=== PATIENT | female | born 1940 ===

== ENCOUNTER 2021-08-01 16:17 | Inpatient (IN) | payer MEDICARE, OTHER ==
[~2021-08-01] VITALS: Ht 162.6 cm; Wt 50.2 kg
[2021-08-01 18:13] LABS: Basophils # (auto) 0 10 ^3/uL (0-0.2); Basophils % (auto) 0.8 % (0.0-2.0); Eosinophils # (auto) 0 10 ^3/uL (0-0.8); Eosinophils % (auto) 0.5 % (0.0-7.0); Hematocrit 39.7 % (36.0-46.0); Hemoglobin 13.3 g/dL (12.2-16.2); Lymphocytes # (auto) 0.8 10 ^3/uL (0.4-5.4); Lymphocytes % (auto) 13.8 % (10.0-50.0); Mean Corpuscular Hemoglobin 31.6 pg (28.0-32.0); Mean Corpuscular Hgb Conc. 33.4 g/dL (32.0-36.0); Mean Corpuscular Volume 94.5 fL (80.0-100.0); Monocytes # (auto) 0.5 10 ^3/uL (0-1.3); Monocytes % (auto) 8.7 % (0.0-12.0); Neutrophils # (auto) 4.6 10 ^3/uL (1.6-8.6); Neutrophils % (auto) 76.2 % (37.0-80.0); Nucleated Red Blood Cells % 0.1 %; Red Cell Distribution Width 15.2 % (11.8-14.3)
[2021-08-01 18:24] LABS: Albumin 2.7 g/dL (3.4-5.0); Calcium 11.5 mg/dL (8.5-10.1); Magnesium 2.5 mg/dL (1.6-2.6)
[2021-08-01 18:29] LABS: BUN/Creatinine Ratio 19.3; Bilirubin, Total 0.7 mg/dL (0.2-1.0); Total Protein 6.4 g/dL (6.4-8.2)
[2021-08-01 18:40] LABS: Potassium 2.6 mmol/L (3.5-5.1)
[2021-08-01 18:41] LABS: INR 0.99 (0.9-1.15)
[2021-08-01] MEDS ORDERED: POTASSIUM CHL 20MEQ/100ML 100 ML IV STA (20:27)
[2021-08-01] MEDS ORDERED: ASPirin 325 MG TAB PO ONE (20:30)
[2021-08-01] MEDS ORDERED: POTASSIUM EFFERVESENT TAB 25 MEQ PO ONE (20:30)
[2021-08-01] MEDS ORDERED: IOHEXOL 300 MG/ML 100ML BOTTLE IJ ONE (21:57)
[2021-08-01] MEDS ORDERED: ACETAMINOPHEN 325 MG TAB PO PRN (22:00)
[2021-08-01] MEDS ORDERED: ONDANSETRON HCL 4 MG/2 ML VIAL IV PRN (22:00)
[2021-08-01] MEDS ORDERED: MORPHINE SULFATE INJECTION 2 MG/ML SYRG IV PRN (22:00)
[2021-08-01] MEDS ORDERED: NITROGLYCERIN 0.4 MG SL TAB SL PRN (22:00)
[2021-08-01] MEDS ORDERED: TEMAZEPAM 15 MG CAP PO PRN (22:00)
[2021-08-02] MEDS ORDERED: POTASSIUM CHL 20MEQ/100ML 100 ML IV ONE (00:56)
[2021-08-02] MEDS: RANOLAZINE ER 500 MG TAB PO SCH ×3 (01:20→22:00)
[2021-08-02] MEDS: ATORVASTATIN 20 MG TAB PO SCH ×2 (01:20→22:00)
[2021-08-02] MEDS: DONEPEZIL HYDROCHLORIDE 5 MG TAB PO SCH ×2 (01:20→22:00)
[2021-08-02] MEDS ORDERED: FLEET ENEMA(ADULT) 135 ML PR ONE (06:30)
[2021-08-02] MEDS: LEVOTHYROXINE SODIUM 25 MCG TAB PO SCH (07:00)
[2021-08-02 08:03] LABS: Basophils # (auto) 0 10 ^3/uL (0-0.2); Basophils % (auto) 0.3 % (0.0-2.0); Eosinophils # (auto) 0 10 ^3/uL (0-0.8); Eosinophils % (auto) 0.2 % (0.0-7.0); Hematocrit 38.7 % (36.0-46.0); Hemoglobin 13.3 g/dL (12.2-16.2); Lymphocytes # (auto) 0.8 10 ^3/uL (0.4-5.4); Lymphocytes % (auto) 8.8 % (10.0-50.0); Mean Corpuscular Hemoglobin 32.3 pg (28.0-32.0); Mean Corpuscular Hgb Conc. 34.4 g/dL (32.0-36.0); Mean Corpuscular Volume 93.8 fL (80.0-100.0); Monocytes # (auto) 0.7 10 ^3/uL (0-1.3); Monocytes % (auto) 7.5 % (0.0-12.0); Neutrophils # (auto) 7.5 10 ^3/uL (1.6-8.6); Neutrophils % (auto) 83.2 % (37.0-80.0); Red Blood Cells 4.12 10^6/uL (4.0-5.20); Red Cell Distribution Width 15.2 % (11.8-14.3)
[2021-08-02 08:16] LABS: Alanine Aminotransferase 18 U/L (13-56); Albumin 2.6 g/dL (3.4-5.0); Anion Gap 9 (5-15); Aspartate Aminotransferase 34 U/L (15-37); BUN/Creatinine Ratio 23.5; Blood Urea Nitrogen 16 mg/dL (7-18); Calcium 11.6 mg/dL (8.5-10.1); Carbon Dioxide 29 mmol/L (21-32); Chloride 98 mmol/L (98-107); GFR African American 106 mL/min; GFR Non-African American 88 mL/min; Glucose 78 mg/dL (74-106); Sodium 136 mmol/L (136-145)
[2021-08-02 08:19] LABS: Alkaline Phosphatase 67 U/L (45-117); Bilirubin, Total 0.6 mg/dL (0.2-1.0); Total Protein 6.1 g/dL (6.4-8.2)
[2021-08-02] MEDS: DOCUSATE SOD 100 MG CAP PO SCH ×2 (08:22→22:00)
[2021-08-02] MEDS: PANTOPRAZOLE 40 MG TAB PO SCH (08:22)
[2021-08-02] MEDS ORDERED: ENOXAPARIN SOD 40 MG/0.4 ML SYRINGE SC SCH (10:00)
[2021-08-02] MEDS ORDERED: ASPirin 81 mg TAB PO SCH (10:00)
[2021-08-02 16:57] VITALS: BP 148/76
[2021-08-02] MEDS: D5W/SOD CHLO 0.9% 1,000 ML IV SCH (17:00)
[2021-08-02] MEDS: RIVAROXABAN 15 MG TAB PO SCH (18:00)
[2021-08-02] MEDS ORDERED: hydrALAZINE HCL 20 MG/ML VL IV PRN (23:30)
[2021-08-03 00:24] VITALS: BP 152/73
[2021-08-03] MEDS: D5W/SOD CHLO 0.9% 1,000 ML IV SCH ×3 (03:27→14:30)
[2021-08-03 04:55] VITALS: BP 156/75
[2021-08-03 04:58] LABS: Urine Bacteria NONE SEEN /hpf (None Seen); Urine Blood 3+ /uL (Negative); Urine Specific Gravity 1.048 (1.001-1.035); Urine WBC 119 /hpf (0 - 5); Urine WBC Clumps PRESENT /hpf (None Seen)
[2021-08-03] MEDS: LEVOTHYROXINE SODIUM 25 MCG TAB PO SCH (06:32)
[2021-08-03 09:00] VITALS: BP 159/78
[2021-08-03] MEDS: PANTOPRAZOLE 40 MG TAB PO SCH (09:21)
[2021-08-03] MEDS: DOCUSATE SOD 100 MG CAP PO SCH ×2 (09:21→22:15)
[2021-08-03] MEDS: RANOLAZINE ER 500 MG TAB PO SCH ×2 (09:21→22:15)
[2021-08-03] MEDS: cefTRIAXone 1GM/50ML D5W 50 ML IV SCH (10:36)
[2021-08-03 13:00] VITALS: BP 157/76
[2021-08-03 17:00] VITALS: BP 154/62
[2021-08-03] MEDS: RIVAROXABAN 15 MG TAB PO SCH (17:13)
[2021-08-03 22:00] VITALS: BP 158/76
[2021-08-03] MEDS: DONEPEZIL HYDROCHLORIDE 5 MG TAB PO SCH (22:14)
[2021-08-03] MEDS: ATORVASTATIN 20 MG TAB PO SCH (22:15)
[2021-08-04] MEDS: D5W/SOD CHLO 0.9% 1,000 ML IV SCH (04:48)
[2021-08-04 05:00] VITALS: BP 149/70
[2021-08-04] MEDS: LEVOTHYROXINE SODIUM 25 MCG TAB PO SCH (06:19)
[2021-08-04 09:00] VITALS: BP 150/76
[2021-08-04] MEDS: RANOLAZINE ER 500 MG TAB PO SCH ×2 (09:35→21:33)
[2021-08-04] MEDS: PANTOPRAZOLE 40 MG TAB PO SCH (09:35)
[2021-08-04] MEDS: DOCUSATE SOD 100 MG CAP PO SCH (09:35)
[2021-08-04] MEDS: cefTRIAXone 1GM/50ML D5W 50 ML IV SCH (09:35)
[2021-08-04 13:00] VITALS: BP 144/74
[2021-08-04 16:40] VITALS: BP 154/83
[2021-08-04] MEDS: RIVAROXABAN 15 MG TAB PO SCH (18:13)
[2021-08-04] MEDS: SENNA 8.6 MG TAB PO SCH (21:32)
[2021-08-04] MEDS: DONEPEZIL HYDROCHLORIDE 5 MG TAB PO SCH (21:33)
[2021-08-04] MEDS: ATORVASTATIN 20 MG TAB PO SCH (21:33)
[2021-08-04 22:00] VITALS: BP 150/68
[2021-08-04] MEDS: FOLIC ACID 1 MG in D5W 5% 50 ML INJ SCH (22:13)
[2021-08-05] MEDS: D5W/SOD CHLO 0.9% 1,000 ML IV SCH ×2 (00:13→13:21)
[2021-08-05 05:00] VITALS: BP 123/85
[2021-08-05] MEDS: LEVOTHYROXINE SODIUM 100 MCG TAB PO SCH (06:21)
[2021-08-05 09:00] VITALS: BP 148/85
[2021-08-05] MEDS: cefTRIAXone 1GM/50ML D5W 50 ML IV SCH (09:30)
[2021-08-05] MEDS: FOLIC ACID 1 MG in D5W 5% 50 ML INJ SCH (11:19)
[2021-08-05] MEDS: PANTOPRAZOLE 40 MG TAB PO SCH (11:57)
[2021-08-05] MEDS: RANOLAZINE ER 500 MG TAB PO SCH ×2 (11:58→21:17)
[2021-08-05 13:00] VITALS: BP 141/87
[2021-08-05 13:12] LABS: Hematocrit 34.8 % (36.0-46.0); Hemoglobin 11.8 g/dL (12.2-16.2)
[2021-08-05 17:00] VITALS: BP 123/68
[2021-08-05] MEDS: SODIUM CHLORIDE 0.9% 1,000 ML IV SCH (18:34)
[2021-08-05] MEDS: ATORVASTATIN 20 MG TAB PO SCH (21:17)
[2021-08-05] MEDS: SENNA 8.6 MG TAB PO SCH (21:17)
[2021-08-05] MEDS: DONEPEZIL HYDROCHLORIDE 5 MG TAB PO SCH (21:17)
[2021-08-05 22:37] VITALS: BP 91/43
[2021-08-06] MEDS: SODIUM CHLORIDE 0.9% 1,000 ML IV SCH (04:43)
[2021-08-06] MEDS: LEVOTHYROXINE SODIUM 100 MCG TAB PO SCH (06:18)
[2021-08-06 08:47] VITALS: BP 164/91
[2021-08-06] MEDS: RANOLAZINE ER 500 MG TAB PO SCH (10:25)
[2021-08-06] MEDS: PANTOPRAZOLE 40 MG TAB PO SCH (10:25)
[2021-08-06 12:18] VITALS: BP 164/75
[2021-08-06 16:23] VITALS: BP 147/69
== END 2021-08-06 17:50 | disposition home health service (06) | DRG 640 ==
LOC: ER 16:17 → EDBD 16:17 → TELE 21:47 → TELE-CENTR 08-02 13:42 → CENTRAL 08-04 10:21
PROVIDERS: ADMIT Nurse Practitioner; ATTEND Hospitalist
DX: E86.0 Dehydration (principal); G93.41 Metabolic encephalopathy; N39.0 Urinary tract infection, site not specified; E44.0 Moderate protein-calorie malnutrition; R64 Cachexia; Z68.1 Body mass index [BMI] 19.9 or less, adult; E87.6 Hypokalemia; E53.8 Deficiency of other specified B group vitamins; E78.5 Hyperlipidemia, unspecified; I10 Essential (primary) hypertension; I48.91 Unspecified atrial fibrillation; R62.7 Adult failure to thrive; Z79.01 Long term (current) use of anticoagulants; Z79.899 Other long term (current) drug therapy; Z82.49 Family history of ischemic heart disease and other diseases of the circulatory system; Z90.49 Acquired absence of other specified parts of digestive tract; Z90.710 Acquired absence of both cervix and uterus; Z88.2 Allergy status to sulfonamides
CPT/HCPCS: 36415; 70450; 70551; 71045; 74177; 80053; 81001; 82607; 82746; 83605; 83735; 83880; 84443; 84484; 85014; 85018; 85025; 85610; 87086; 87426; 92610; 93005; 96365; 96366; 97110; 97116; G0378; J0696; J3480; J7042; J7060